=== PATIENT | male | born 1945 | race Caucasian/White ===

== ENCOUNTER 2017-02-14 06:34 | Observation (INO) | payer OTHER ==
[~2017-02-14] VITALS: Ht 182.9 cm; Wt 94.4 kg
--- NOTE | ~2017-02-14 | EKG ---
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
[2017-02-14 07:15] VITALS: BP 96/73
[2017-02-14 07:20] LABS: ABSOLUTE NEUTROPHILS 3.5 thou/uL (1.4-8.2); BASOPHILS 0.7 % (0.0-2.0); EOSINOPHILS 2.7 % (0.0-3.0); HEMATOCRIT 43.4 % (42.0-52.0); HEMOGLOBIN 14.8 gm/dL (14.0-18.0); LYMPHOCYTES 24.5 % (24.0-44.0); MCH 31.1 pg (26.0-34.0); MCHC 34.1 g/dL (28.0-37.0); MCV 91.3 fL (80.0-100.0); MONOCYTES 6.5 % (1.0-8.0); PLATELET COUNT 257 thou/uL (150-400); POLYS 65.6 % (36.0-66.0); RBC 4.76 mil/uL (4.50-6.00); WBC 5.4 thou/uL (4.0-11.0)
[2017-02-14 07:21] LABS: MANUAL DIFF NO
[2017-02-14 07:29] LABS: CALCIUM 8.8 mg/dL (8.5-10.1); POTASSIUM 4.3 mmol/L (3.5-5.1)
[2017-02-14 07:33] LABS: ALBUMIN 3.3 g/dL (3.4-5.0); TOTAL BILIRUBIN 0.6 mg/dL (<0.1-1.0); TOTAL PROTEIN 6.6 g/dL (6.4-8.2)
[2017-02-14 07:35] LABS: APTT 33.4 Seconds (24.5-32.8); PROTIME 10.4 Seconds (9.3-11.4)
[2017-02-14] MEDS ORDERED: ASPIR 8181 MG PO (07:50)
[2017-02-14] MEDS ORDERED: WELLBUTRIN 100100 MG PO (07:51)
[2017-02-14] MEDS ORDERED: CELEBREX 200 M200 M1 PO ×2 (07:52→07:53)
[2017-02-14] MEDS ORDERED: CELEXA20 MG PO (07:54)
[2017-02-14] MEDS ORDERED: FISH OIL 1,001000 M2 PO (07:56)
[2017-02-14] MEDS ORDERED: GLUCOSAMINE-CH1 EA15 PO (07:58)
[2017-02-14] MEDS ORDERED: ZOCOR20 MG PO (07:59)
[2017-02-14] MEDS ORDERED: FLOMAX0.4 MG PO (07:59)
[2017-02-14] MEDS ORDERED: TRAZODONE HCL50 MG PO (08:00)
[2017-02-14] MEDS ORDERED: TOPROL XL25 MG PO (08:04)
[2017-02-14 16:50] VITALS: BP 109/66
[2017-02-14 20:08] VITALS: BP 114/66
[2017-02-15 04:02] VITALS: BP 104/60
[2017-02-15 07:15] VITALS: BP 118/72
[2017-02-15 08:20] VITALS: BP 118/72
[2017-02-15] MEDS ORDERED: PRADAXA150 MG PO (08:44)
[2017-02-15] MEDS ORDERED: MULTAQ 400 MG400 MG PO (08:45)
[2017-02-15 09:04] VITALS: BP 118/72
== END 2017-02-15 11:06 | disposition home or self-care (01) ==
LOC: CATH 06:34 → 2N 13:43 → CATH 15:44 → 2N 02-15 11:06
PROVIDERS: Internal Medicine Cardiovascular Disease
DX: I48.0 Paroxysmal atrial fibrillation (principal)
CPT/HCPCS: 62110; 62900; 70005

== ENCOUNTER 2017-10-31 06:49 | Observation (INO) | payer OTHER ==
[2017-10-31] VITALS (9 sets, daily range): BP systolic 103–128; BP diastolic 66–80
[~2017-10-31] VITALS: Ht 180.3 cm; Wt 100.7 kg
--- NOTE | ~2017-10-31 | P ---
[facility] [place] [address] PROCEDURE REPORT Name: JULIASHANIQUE Room #: 202-P [facility] Carol Allan#: [id number] Admission: 10/31/17 Attend Phys: Olman Graham MD Discharge: 11/01/17 Date of : 47 Report #: [id number] THIS REPORT FOR: //name// CC: LYNN Graham PROCEDURE: Atrial fibrillation ablation. PREOPERATIVE DIAGNOSIS: Atrial fibrillation. POSTOPERATIVE DIAGNOSIS: Atrial fibrillation. HISTORY OF PRESENT ILLNESS: The patient is a 71-year-old male who underwent previous AFib ablation and had recurrence off of Multaq and is here for repeat ablation. ANESTHESIA: The patient underwent general anesthesia, with no anesthesia-related complications. DESCRIPTION OF PROCEDURE: The patient underwent informed consent. We discussed the details of the procedure including the risks, which include but not limited to bleeding, vascular damage, cardiac perforation as well as stroke or CO. He understood these risks and was willing to proceed. The patient was brought to the EP laboratory in fasting and sedated state and prepped and draped in a sterile fashion. I obtained access to the bilateral femoral veins and placed sheaths using the modified Seldinger technique. In the right femoral vein, I placed 8 and 6-Norwegian short sheaths. In the left femoral vein, I placed a 9 and 7-Norwegian short sheath. Under fluoroscopy, I placed a decapolar catheter in the coronary sinus and placed an ice catheter into the right atrium, where I created a 3-D geometry of the left atrium. At baseline, the patient was in sinus rhythm with a sinus cycle length of 875 milliseconds, ND interval 200 milliseconds, QRS duration 88 milliseconds and QT interval 425 milliseconds. The patient was systemically heparinized and a transseptal was performed using an SL1 sheath and Harbert needle. Transseptal was easily performed and I placed the SL1 sheath in the left atrium and obtained a Lasso catheter and obtain measurements of the pulmonary veins. I created a 3-D geometry of the left atrium and there was evidence of isolation of the left superior and left inferior pulmonary veins. The right superior and the right inferior pulmonary veins were reconnected. I then performed a second transseptal using an SL1 sheath and advanced the sheath into the left atrium as well and placed a [employer] Carpenter SmartTouch ThermoCool catheter into the left atrium. Next, I re-isolated the right superior pulmonary vein, which had reconnected [address] [address] PROCEDURE REPORT Name: SHANIQUE DUMONT Room #: 202-P SARAH Allan#: [id number] Admission: 10/31/17 Attend Phys: Olman Graham MD Discharge: 11/01/17 Date of : 47 Report #: [id number] along the roof of this vein. This demonstrated entrance and exit block post ablation. I then re-isolated the right inferior pulmonary vein, which had isolated along the inferior aspect of this vein. Again, there was entrance and exit block in this vein as well. Post-ablation, the patient was in sinus rhythm. Atrial pacing was performed and AV block was noted at 490 milliseconds. AV jos ERP was noted at 400 milliseconds at a 600-millisecond basic drive cycle length. The sinus node recovery time pacing at 500 milliseconds was 1225 milliseconds. Isoproterenol infusion was performed and AV block was noted at 430 milliseconds, AV jos ERP was noted at 350 milliseconds at 600-millisecond basic drive cycle length. Isoproterenol was increased to 3 mcg per minute and AV block was noted at 390 milliseconds and atrial ERP was noted at 260 milliseconds at a 500-millisecond basic drive cycle length. Next, I turned my attention to the right atrium and an atrial flutter ablation was performed. Ablation was performed initially at 40 archuleta and a continuous drag lesion was performed and there was no evidence of block. I then performed a second line somewhat more lateral at 50 archuleta and there continued to be conduction across the isthmus. I then performed a more septal line and after this, there was clear bidirectional block. The transisthmus conduction time was 165 milliseconds. Post-ablation, the patient remained in sinus rhythm with a sinus cycle length of 800 milliseconds, ND interval 200 milliseconds, QRS duration 90 milliseconds and QT interval 420 milliseconds. As such, all catheters and sheaths were pulled. Hemostasis obtained and the patient awoke neurologically hemodynamically intact, with no complications and no significant bleeding. Of note, the atrial flutter ablation was performed using a ramp sheath. CONCLUSIONS: 1. Successful atrial fibrillation ablation with re-isolation of the right superior and right inferior pulmonary veins. 2. Persistent isolation of the left-sided veins. 3. Successful atrial flutter ablation with bidirectional block. <ELECTRONICALLY SIGNED> By: Olman Graham MD 11/18/17 1513 [id number] Olman Graham MD /nt
[~2017-10-31 06:49] MED LIST: ASPIR 8181 MG PO; CELEBREX 200 M200 M1 PO; CELEXA20 MG PO; FISH OIL 1,001000 M2 PO; FLOMAX0.4 MG PO; GLUCOSAMINE-CH1 EA15 PO; MULTAQ 400 MG400 MG PO; PRADAXA150 MG PO; TOPROL XL25 MG PO; TRAZODONE HCL50 MG PO; WELLBUTRIN 100100 MG PO; ZOCOR20 MG PO
[2017-10-31 07:14] LABS: ABSOLUTE NEUTROPHILS 3.9 thou/uL (1.4-8.2); BASOPHILS 1.4 % (0.0-2.0); EOSINOPHILS 4.1 % (0.0-3.0); HEMATOCRIT 45.6 % (42.0-52.0); HEMOGLOBIN 15.5 gm/dL (14.0-18.0); LYMPHOCYTES 24.3 % (24.0-44.0); MCH 30.5 pg (26.0-34.0); MCHC 33.9 g/dL (28.0-37.0); MCV 89.9 fL (80.0-100.0); MONOCYTES 7.1 % (1.0-8.0); PLATELET COUNT 344 thou/uL (150-400); POLYS 63.1 % (36.0-66.0); RBC 5.07 mil/uL (4.50-6.00); RDW 13.4 % (10.5-14.5); WBC 6.1 thou/uL (4.0-11.0)
[2017-10-31 07:21] LABS: CALCIUM 9.4 mg/dL (8.5-10.1); CREATININE 1.2 mg/dL (0.7-1.3); POTASSIUM 4.6 mmol/L (3.5-5.1)
[2017-10-31 07:28] LABS: APTT 29.9 Seconds (24.5-32.8)
[2017-11-01 04:28] VITALS: BP 102/62
[2017-11-01 08:00] VITALS: BP 106/38
[2017-11-01 08:31] VITALS: BP 106/38
== END 2017-11-01 10:59 | disposition home or self-care (01) ==
LOC: CATH 06:49 → 2N 15:00 → ENTRNSPT 11-01 10:52 → EDTRNSPTSTS 11-01 10:55 → 2N 11-01 10:59
PROVIDERS: Internal Medicine Cardiovascular Disease
DX: I48.92 Unspecified atrial flutter (principal); I48.91 Unspecified atrial fibrillation; I25.10 Atherosclerotic heart disease of native coronary artery without angina pectoris; I10 Essential (primary) hypertension; E78.5 Hyperlipidemia, unspecified
CPT/HCPCS: 62110; 62900; 65020; 65040; 70005

== ENCOUNTER → 2020-03-27 | Outpatient (CLI) | payer OTHER ==
--- NOTE | ~2020-03-27 | P ---
[facility] [place] [address] PROCEDURE REPORT Name: SHANIQUE DUMONT Room #: REG PEBBLESKeiko Vega.#: [id number] Admission: 03/27/20 Attend Phys: Olman Graham MD Discharge: Date of : 47 Report #: [id number] THIS REPORT FOR: cc: Иван Isidro MD, David B. MD Couchonnal, Luis F. MD ~ CC: Иван Graham LOOP RECORDER EXPLANTATION PREOPERATIVE DIAGNOSIS: Loop recorder battery depletion. POSTOPERATIVE DIAGNOSIS: Loop recorder battery depletion. DESCRIPTION OF PROCEDURE: The patient underwent informed consent. He was prepped and draped in a sterile fashion. I injected lidocaine at the prior incision site. Incision was made. The device was removed. A single layer of suture was delivered. There were no procedure related complications. CONCLUSIONS: Successful explantation of an implantable loop recorder. By: [id number] [id number] Olman Graham MD /nt
[2020-03-27 08:19] VITALS: BP 102/63
== END ==
LOC: CATH 07:15
PROVIDERS: ATTEND Internal Medicine Cardiovascular Disease
DX: Z45.09 Encounter for adjustment and management of other cardiac device (principal); I48.91 Unspecified atrial fibrillation